=== PATIENT | female | born 1995 | race African-American/Black ===

== ENCOUNTER 2022-02-16 11:35 | Emergency (ER) | payer OTHER ==
[~2022-02-16] VITALS: Ht 152.4 cm; Wt 65.8 kg
--- NOTE | 2022-02-16 12:02 | NUR ---
SULEIMAN DALY, OTJanine. C/O R THIGH PAIN 09/10, L FOOT 02/08 S/P GETTING ARRESTED YESTERDAY. WILL CONTINUE TO MONITOR THE PATIENT.
--- NOTE | 2022-02-16 12:08 | NUR ---
DR MONTENEGRO AT THE BEDSIDE
--- NOTE | 2022-02-16 12:21 | NUR ---
R[employer]F PANEL HANGER AT THE BEDSIDE
[2022-02-16] MEDS ORDERED: TDAP [DIPH/PERTUSSIS/TET] 0.5 ML VIAL IM ONE ×2 (12:28→12:30)
[2022-02-16] MEDS ORDERED: BACITRACIN ZINC OINT PACKET 1 EA PACKET TP ONE (12:30)
--- NOTE | 2022-02-16 15:14 | NUR ---
THE PATIENT IS TAKEN TO CT [facility]IA [facility]
--- NOTE | 2022-02-16 15:33 | NUR ---
THE PATIENT IS BACK FROM [facility]IA [facility]
--- NOTE | 2022-02-16 16:58 | NUR ---
COVID ANTIGEN SWAB DONE AND SENT TO THE LAB.
[2022-02-16] MEDS ORDERED: ACETAMINOPHEN ES 500 MG TABLET PO ONE (18:00)
--- NOTE | 2022-02-16 18:04 | NUR ---
ORTHO DR MEZA SPEAKING WITH DR NICHOLS
[2022-02-16] MEDS ORDERED: ACETAMINOPHEN ES 500 MG TABLET ONE (18:08)
--- NOTE | 2022-02-16 18:40 | NUR ---
IV removed. Catheter intact and site benign. Pressure and 4x4 applied to site. No bleeding noted.
--- NOTE | 2022-02-16 18:42 | NUR ---
Patient discharged to home in stable condition with [employer] officers. Written and verbal after care instructions given. Patient and the officers verbalizes understanding of instruction.
[2022-02-16 18:43] VITALS: BP 118/63
[2022-02-16 19:15] LABS: CALCIUM, SERUM 8.8 mg/dL (8.5-10.1); CREATININE 0.7 mg/dL (0.6-1.3); POTASSIUM 4.2 mmol/L (3.5-5.1)
[2022-02-16 19:58] LABS: BASOPHILS % (AUTO) 0.1 % (0.0-2.0); HEMATOCRIT 37 % (33-45); HEMOGLOBIN 11.6 g/dL (11.5-14.8); LYMPHOCYTES % (AUTO) 21.1 % (20.0-44.0); MEAN CORPUSCULAR HGB CONC 31 g/dl (31.0-36.0); MEAN CORPUSCULAR VOLUME 85 fL (82-100); MONOCYTES # (AUTO) 0.2 K/uL (0.1-1.30); MONOCYTES % (AUTO) 3.5 % (2.0-12.0); NEUTROPHILS # (AUTO) 3.5 K/uL (1.8-8.9); NEUTROPHILS % (AUTO) 75.3 % (43.0-81.0); PLATELET COUNT (AUTO) 431 K/uL (150-450); RED BLOOD CELL COUNT(AUTO) 4.35 MIL/uL (4.0-5.2); WHITE BLOOD COUNT (AUTO) 4.7 K/uL (4.3-11.0)
== END 2022-02-16 18:50 ==
LOC: ER 11:49
DX: S72.011P Unspecified intracapsular fracture of right femur, subsequent encounter for closed fracture with malunion (principal); X58.XXXD Exposure to other specified factors, subsequent encounter; S92.415A Nondisplaced fracture of proximal phalanx of left great toe, initial encounter for closed fracture; Y35.813A Legal intervention involving manhandling, suspect injured, initial encounter; Y92.89 Other specified places as the place of occurrence of the external cause; Z20.822 Contact with and (suspected) exposure to COVID-19; Z86.69 Personal history of other diseases of the nervous system and sense organs; Z01.818 Encounter for other preprocedural examination; Z53.8 Procedure and treatment not carried out for other reasons
CPT/HCPCS: 36415; 71045; 73502; 73564; 73630; 73700; 80048; 85025; 85730; 87426; 90471; 90715; 93005; 99285; C9803